=== PATIENT | male | born 2000 | race Caucasian/White ===

== ENCOUNTER 2024-09-29 10:05 | Emergency (ER) | payer BC ==
[~2024-09-29] VITALS: Ht 180.3 cm; Wt 99.8 kg
[2024-09-29] MEDS ORDERED: DOXYCYCLINE HY100 MG PO (11:19)
[2024-09-29 11:21] VITALS: PULSE 98; RESP 23; TEMP 97.8; O2SAT 99
== END 2024-09-29 11:28 | disposition home or self-care (01) ==
LOC: ER 10:20
DX: R06.02 Shortness of breath (principal); J18.9 Pneumonia, unspecified organism; R05.9 Cough, unspecified; R53.83 Other fatigue
CPT/HCPCS: 71046; 93005; 99283